=== PATIENT | male | born 1990 | race Caucasian/White ===

== ENCOUNTER 2018-08-17 19:35 | Emergency (ER) | payer SELFPAY ==
[~2018-08-17] VITALS: Ht 177.8 cm; Wt 98.9 kg
[2018-08-17 19:51] VITALS: Ht 177.8 cm; Wt 98.9 kg
[2018-08-17] MEDS ORDERED: FLUORESCEIN STRIP LEFT EYE ONE (22:00)
[2018-08-17] MEDS ORDERED: TETRACAINE 0.5% 4 ML OPH LEFT EYE SCH (22:00)
[2018-08-17] MEDS ORDERED: POLY10DR19 LEFT EYE (22:28)
--- NOTE | 2018-08-17 22:44 | ERD ---
ER Documentation Chief Complaint Chief Complaint piece of metal struck his L eye today HPI 28-year-old male presenting with a piece of metal stuck in his left eye. He states this happened 2 days ago. He does not wear glasses or contact lenses. He denies any visual changes. Denies medical problems. NKDA. Surgical history denies. Social history denies ROS All systems reviewed and are negative except as per history of present illness. Medications Home Meds Active Scripts Polymyxin B Sulfate-TMP* (Polymyxin B-TMP Eye Drops*) 10 Ml Drops, 1 DROP LEFT EYE QID for 7 Days, EA Prov:CATRACHITA MALONEY PA-C 08/17/18 Allergies Allergies: Coded Allergies: No Known Allergy (Unverified , 08/17/18) PMhx/Soc Medical and Surgical Hx: pt denies Medical Hx, pt denies Surgical Hx History of Surgery: No Anesthesia Reaction: No Hx Neurological Disorder: No Hx Respiratory Disorders: No Hx Cardiac Disorders: No Hx Psychiatric Problems: No Hx Miscellaneous Medical Probl: No Hx Alcohol Use: Yes (SOCIAL) Hx Substance Use: No Hx Tobacco Use: No Smoking Status: Never smoker FmHx Family History: No diabetes, No coronary disease, No other Physical Exam Vitals Vital Signs Date Temp Pulse Resp B/P (MAP) Pulse Ox O2 O2 Flow FiO2 Time Delivery Rate 08/17/18 97.2 74 18 148/91 98 19:51 (110) Physical Exam GENERAL: The patient is well-appearing, well-nourished, in no acute distress HEENT: Atraumatic. Conjunctivae are pink. Pupils equal, round, and reactive to light. There is no scleral icterus. Tympanic membranes clear bilaterally. Oropharynx clear. Foreign body noted to the left cornea. No drainage noted from the eye. NECK: C-spine is soft and supple. There is no meningismus. There is no cervical lymphadenopathy. CHEST: Clear to auscultation bilaterally. There are no rales, wheezes or rhonchi. HEART: Regular rate and rhythm. No murmurs, clicks, rubs or gallops. No S3 or S4. Results 24 hrs Current Medications Medications Dose Sig/Daisy Start Time Status Last (Trade) Ordered Route PRN Stop Time Admin Dose Reason Admin Tetracaine 1 drop ONCE LEFT 08/17/18 HCl EYE 22:00 (Tetracaine 0.5% Steri-Unit Janae) Fluorescein 1 strip ONCE ONCE 08/17/18 DC Sodium LEFT EYE 22:00 08/17/18 (Fyadx-B-Ktoa 22:01 p) Procedures/MDM ER course: Tetracaine applied to left eye with fluorescein stain. Uptake seen at site of foreign body. Using 20-gauge insulin needle foreign body was removed without complication. No iatrogenic injury. MDM: 28-year-old male presenting with foreign body to left eye. Foreign body was removed without complication. I have low suspicion for visual deficit. I have low suspicion for iatrogenic injury. Patient is discharged with prescription for antibiotic drops and recommended to use immediately. All questions answered at discharge. Departure Diagnosis: Primary Impression: Foreign body, eye Condition: Stable Patient Instructions: Foreign Object in the Cornea Referrals: [facility] Hours: Mon - Fri 9:00 AM - 5:00 PM Additional Instructions: FOLLOW UP WITH YOUR PRIMARY CARE PHYSICIAN TOMORROW.Return to this facility if you are not improving as expected. CATRACHITA MALONEY PA-C Aug 17, 2018 22:44
[2018-08-17 22:56] VITALS: BP 134/91; PULSE 69; RESP 18
== END 2018-08-17 22:57 | disposition home or self-care (01) ==
LOC: FTE 19:35
DX: T15.02XA Foreign body in cornea, left eye, initial encounter (principal); X58.XXXA Exposure to other specified factors, initial encounter; Y92.9 Unspecified place or not applicable